=== PATIENT | female | born 1995 | race Hispanic/Latino ===

== ENCOUNTER 2019-01-12 14:10 | Outpatient (CLI) | payer OTHER ==
--- NOTE | 2019-01-12 15:29 | ULT ---
Sonogram abdomen HISTORY: evaluation. Second trimester gestation. FINDINGS: Single intrauterine gestation in variable presentation. Grade 0 placenta is anterior. Amnio tic fluid is within normal limits. No gross intracranial abnormalities. Three-vessel cord with a normal insertion. spine and kidneys are intact as visualized. Four-chamber heart motion at 154 bpm. Measurements are as follows: Biparietal diameter 24 weeks 3 days Head circumference 24 weeks 3 days Abdominal circumference 24 weeks 2 days Femur length 24 weeks 6 days [place] 26 percentile. IMPRESSION: Single viable intrauterine gestation with estimated gestational age based on today's sono gram of 24 weeks 1 day.
== END 2019-01-12 14:11 | disposition home or self-care (01) ==
LOC: NAV ULT 14:10
PROVIDERS: ATTEND Family Medicine
DX: Z34.02 Encounter for supervision of normal first pregnancy, second trimester (principal); Z3A.24 24 weeks gestation of pregnancy
CPT/HCPCS: 76805